=== PATIENT | female | born 1970 | race Caucasian/White ===

== ENCOUNTER → 2016-05-06 | Outpatient (CLI) | payer OTHER, BC ==
--- NOTE | 2016-05-07 02:01 | REP ---
Clinical: Abdominal pain. Technique: Supine views of the abdomen and pelvis. Findings: Bowel gas pattern is relatively nonspecific. No definite obstruction or perforation appreciated. Moderate fecal stasis cannot be excluded suggesting the possibility of associated constipation. No organomegaly. Phleboliths noted within the pelvis. Skeletal structures intact. Impression: Possible fecal stasis and constipation. No evidence for bowel obstruction. No definite perforation. Signed by Adelfo Hutchinson MD 05/07/2016 01:52 A
== END ==
LOC: M WUC 16:42
PROVIDERS: ATTEND Physician Assistant
DX: R10.816 Epigastric abdominal tenderness (principal)

== ENCOUNTER → 2016-05-21 | Outpatient (CLI) | payer OTHER, BC ==
[~2016-05-21] MED LIST: PRIL20CA9 PO
--- NOTE | 2016-05-21 09:27 | REP ---
GALLBLADDER ULTRASOUND: 05/21/2016. Clinical history: Abdominal and epigastric pain. No prior study. Findings: Sonographic evaluation of the abdomen shows liver with homogeneous echotexture in the right hepatic lobe. The left lobe is largely obscured by extensive gas shadowing from overlying stomach. In the right lobe is a 1.4 x 1.1 x 1 cm septated cyst. I see no solid mass, biliary dilatation nor adjacent ascites. Gallbladder is adequately filled. There is no definite stone, sludge, mass or wall thickening. The wall of 2 mm is normal with no pericholecystic fluid. There was no sonographic Holly sign. Common bile duct is 3.3 mm and normal. Pancreas was obscured by gas shadowing and cannot be evaluated. The right kidney is 10 x 5.2 x 4.3 cm and is without hydronephrosis or stone. Impression: 1. Septated cyst in the right lobe of the liver 1.4 x 1.1 cm but no hepatic solid mass, biliary dilatation or ascites. The left lobe is largely obscured by gas shadowing. 2. Gallbladder without stones, wall thickening or mass. There is no sonographic Holly sign. 3. Right kidney unremarkable. Pancreas obscured. Signed by Jose Martinez MD 05/21/2016 09:37 A
== END ==
LOC: M RAD 08:35
PROVIDERS: ATTEND Surgery
DX: R10.13 Epigastric pain (principal)

== ENCOUNTER → 2016-06-04 | Outpatient (CLI) | payer OTHER, BC ==
[~2016-06-04] VITALS: Ht 165.1 cm; Wt 71.7 kg
[~2016-06-04] MED LIST changes: +LIDOCAINE 2% INJ 100 MG/5 ML SDV (FOR ANES.) As Ordered ONE; +NS 1,000 ML IV SCH; +PROPOFOL 200 MG/20 ML VIAL As Ordered ONE; +fentaNYL 100 MCG/2 ML INJECTION (J3010) As Ordered ONE
--- NOTE | 2016-06-04 12:29 | ROOR ---
Patient Name: Sandra Jacobs Procedure Date: 06/04/2016 12:03 PM Date of : 1970 Age: 46 Room: [facility] Gender: Female Note Status: Finalized Procedure: Upper GI endoscopy Indications: Epigastric abdominal pain Providers: Mu Burgos MD Referring MD: [facility], Admin. Requesting Provider: Medicines: Monitored Anesthesia Care Complications: No immediate complications. Procedure: Pre-Anesthesia Assessment: - Prior to the procedure, a History and Physical was performed, and patient medications and allergies were reviewed. The patient is competent. The risks and benefits of the procedure and the sedation options and risks were discussed with the patient. All questions were answered and informed consent was obtained. Patient identification and proposed procedure were verified by the physician, the nurse and the anesthesiologist in the endoscopy suite. Mental Status Examination: alert and oriented. Airway Examination: normal oropharyngeal airway and neck mobility. Respiratory Examination: clear to auscultation. CV Examination: normal. Prophylactic Antibiotics: The patient does not require prophylactic antibiotics. Prior Anticoagulants: The patient has taken no previous anticoagulant or antiplatelet agents. ASA Grade Assessment: II - A patient with mild systemic disease. After reviewing the risks and benefits, the patient was deemed in satisfactory condition to undergo the procedure. The anesthesia plan was to use monitored anesthesia care (MAC). Immediately prior to administration of medications, the patient was re-assessed for adequacy to receive sedatives. The heart rate, respiratory rate, oxygen saturations, blood pressure, adequacy of pulmonary ventilation, and response to care were monitored throughout the procedure. The physical status of the patient was re-assessed after the procedure. The Endoscope was introduced through the mouth, and advanced to the second part of duodenum. The upper GI endoscopy was accomplished without difficulty. The patient tolerated the procedure well. Findings: The examined esophagus was normal. Bilious fluid was found in the gastric body. A small healed ulcer was found in the prepyloric region of the stomach. The scar tissue was healthy in appearance. This was biopsied with a cold forceps for histology. Estimated blood loss was minimal. Localized nodular mucosa was found in the prepyloric region of the stomach. Biopsies were taken with a cold forceps for histology. Estimated blood loss was minimal. Impression: - Normal esophagus. - Bilious gastric fluid. - Scar in the prepyloric region of the stomach. Biopsied. - Nodular mucosa in the prepyloric region of the stomach. Biopsied. Recommendation: - Discharge patient to home (ambulatory). Mu Burgos MD Mu Burgos MD 06/04/2016 12:22:18 PM This report has been signed electronically. Number of Addenda: 0 Note Initiated On: 06/04/2016 12:03 PM Estimated Blood Loss: Estimated blood loss was minimal.
[2016-06-04 12:40] VITALS: BP 108/65
== END | disposition home or self-care (01) ==
LOC: M OPP 11:06
PROVIDERS: ATTEND Surgery
DX: R10.13 Epigastric pain (principal); K31.89 Other diseases of stomach and duodenum; R12 Heartburn; Z79.899 Other long term (current) drug therapy; Z80.49 Family history of malignant neoplasm of other genital organs
CPT/HCPCS: 43239; 88305; 99156; J3010

== ENCOUNTER → 2016-07-16 | Outpatient (REF) | payer OTHER, BC ==
[~2016-07-16] MED LIST changes: -LIDOCAINE 2% INJ 100 MG/5 ML SDV (FOR ANES.) As Ordered ONE; -NS 1,000 ML IV SCH; -PROPOFOL 200 MG/20 ML VIAL As Ordered ONE; -fentaNYL 100 MCG/2 ML INJECTION (J3010) As Ordered ONE
[2016-07-16 18:18] LABS: BASO % 0.5 % (0.0-1.0); EOS # 0.2 K/mm3 (0.0-0.50); EOS % 3.1 % (0.0-3.0); LARGE UNSTAINED CELL # 0.1 K/mm3 (0.0-0.4); LARGE UNSTAINED CELL % 1.7 % (0.0-4.0); LYMPH # 1.9 K/mm3 (1.5-4.5); LYMPH % 35.7 % (24.0-44.0); MEAN CORPUSCULAR HEMOGLOBIN 29.3 pg (27.0-33.0); MEAN CORPUSCULAR HGB CONC 32.7 g/dl (32.0-36.5); MEAN CORPUSCULAR VOLUME 89.5 fl (80.0-96.0); MONO # 0.4 K/mm3 (0.0-0.8); MONO % 7.7 % (0.0-5.0); NEUTROPHILS # 2.5 K/mm3 (1.8-7.7); NEUTROPHILS % 51.3 % (36.0-66.0); PLATELET COUNT, AUTOMATED 234 k/mm3 (150-450); RED CELL DISTRIBUTION WIDTH 12.8 % (11.5-14.5)
[2016-07-16 19:10] LABS: ALBUMIN 3.6 GM/DL (3.2-5.2); ALBUMIN/GLOBULIN RATIO 1.16 (1.00-1.93); ALKALINE PHOSPHATASE 65 U/L (45-117); ALT/SGPT 23 U/L (12-78); ANION GAP 7 MEQ/L (8-16); AST/SGOT 17 U/L (15-37); BILIRUBIN,TOTAL 0.3 MG/DL (0.2-1.0); BLOOD UREA NITROGEN 16 MG/DL (7-18); CALCIUM LEVEL 8.5 MG/DL (8.5-10.1); CARBON DIOXIDE LEVEL 25 MEQ/L (21-32); CHLORIDE LEVEL 110 MEQ/L (98-107); CHOLESTEROL LEVEL 159 MG/DL (<200); CREATININE FOR GFR 0.76 MG/DL (0.55-1.02); FREE T4 0.95 NG/DL (0.76-1.46); GLOMERULAR FILTRATION RATE > 60.0 (>58); GLUCOSE, FASTING 85 MG/DL (70-105); POTASSIUM SERUM 4.6 MEQ/L (3.5-5.1); SODIUM LEVEL 142 MEQ/L (136-145); TOTAL PROTEIN 6.7 GM/DL (6.4-8.2); TRIGLYCERIDES LEVEL 44 MG/DL (<150)
== END ==
LOC: M SFHCCAPE 07:16
PROVIDERS: ATTEND Nurse Practitioner
DX: F41.1 Generalized anxiety disorder (principal)

== ENCOUNTER → 2016-07-23 | Outpatient (CLI) | payer OTHER, BC ==
--- NOTE | 2016-07-24 05:18 | REP ---
Clinical: Pelvic pain and dyspareunia . Technique: Transabdominal pelvic ultrasound followed by transvaginal examination for better evaluation of the endometrium and adnexa with color Doppler evaluation of the ovaries. Findings: Bladder is unremarkable and measures 9.2 x 7.1 x 5.4 cm . Heterogeneous anteverted uterus measures 9.4 x 4.1 x 6.2 cm . The endometrial complex measures 7.8 mm thickness. No discrete uterine or endometrial abnormalities are appreciated. Few Nabothian cysts are identified in the cervical region. Bilateral ovaries are normal in appearance and vascularity without evidence for torsion. Right ovary measures 3.1 x 1.4 x 3.0 cm with 1.1 cm dominant follicle ; R I = 0.50 . Left ovary measures 3.5 x 1.6 x 1.9 cm with 1.8 cm resolving physiologic cyst ; R I = 0.50 . Trace pelvic free fluid. No adnexal mass lesion. . Impression: 1. Relatively normal pelvic ultrasound Signed by Adelfo Hutchinson MD 07/24/2016 05:09 A
== END ==
LOC: M RAD 10:11
PROVIDERS: ATTEND Physician Assistant
DX: N94.10 Unspecified dyspareunia (principal); R10.2 Pelvic and perineal pain

== ENCOUNTER 2016-11-28 15:53 | Emergency (ER) | payer OTHER, BC ==
[~2016-11-28] VITALS: Ht 165.1 cm; Wt 76.4 kg
[2016-11-28 15:54] VITALS: BP 146/69
[2016-11-28] MEDS ORDERED: NAPR500T3 PO (16:12)
[2016-11-28] MEDS ORDERED: IBUP-1022 PO (17:46)
== END 2016-11-28 17:54 | disposition home or self-care (01) ==
LOC: M ED 15:53
DX: S56.911A Strain of unspecified muscles, fascia and tendons at forearm level, right arm, initial encounter (principal); S63.501A Unspecified sprain of right wrist, initial encounter; X58.XXXA Exposure to other specified factors, initial encounter; Y92.89 Other specified places as the place of occurrence of the external cause; Y93.9 Activity, unspecified; Y99.9 Unspecified external cause status

== ENCOUNTER 2017-02-22 12:34 | Emergency (ER) | payer OTHER, BC ==
[~2017-02-22] VITALS: Ht 165.1 cm; Wt 77.3 kg
[~2017-02-22 12:34] MED LIST changes: +IBUP-1022 PO; +NAPR500T3 PO
[2017-02-22] MEDS ORDERED: IBUP200C10 PO (12:45)
[2017-02-22] MEDS ORDERED: MULT1TAB8 PO (12:45)
[2017-02-22] MEDS ORDERED: CALC-190 PO (12:45)
[2017-02-22] MEDS ORDERED: FISH500C PO (12:45)
[2017-02-22] MEDS ORDERED: IBUPROFEN 600 MG TAB PO ONE (13:30)
[2017-02-22] MEDS ORDERED: IBUP-1022 PO (14:10)
[2017-02-22 14:22] VITALS: BP 139/76
--- NOTE | 2017-02-22 14:35 | REP ---
LEFT KNEE SERIES, FIVE VIEWS: There is no evidence of an acute fracture, dislocation or intrinsic bone disease. There is minor spurring of the superior pole of the patella. IMPRESSION: No fracture or dislocation. Signed by Earnest De La Cruz MD 02/22/2017 05:39 P
== END 2017-02-22 14:23 | disposition home or self-care (01) ==
LOC: M ED 12:34
DX: M25.562 Pain in left knee (principal); Z79.899 Other long term (current) drug therapy

== ENCOUNTER 2017-06-05 20:31 | Emergency (ER) | payer OTHER, BC ==
[2017-06-05 21:34] LABS: BASO % 0.2 % (0.0-1.0); EOS % 0.3 % (0.0-3.0); HEMATOCRIT 37.5 % (36.0-47.0); HEMOGLOBIN 12.6 g/dl (12.0-16.0); IMMATURE GRANULOCYTE % 0.5 % (0-3.0); LYMPH # 1.4 10^3/uL (1.5-4.5); LYMPH % 14.4 % (24.0-44.0); MEAN CORPUSCULAR HEMOGLOBIN 29.1 pg (27.0-33.0); MEAN CORPUSCULAR HGB CONC 33.6 g/dl (32.0-36.5); MEAN CORPUSCULAR VOLUME 86.6 fl (80.0-96.0); MONO # 0.6 10^3/uL (0.0-0.8); MONO % 6.7 % (0.0-5.0); NEUTROPHILS # 7.4 10^3/uL (1.8-7.7); NEUTROPHILS % 77.9 % (36.0-66.0); PLATELET COUNT, AUTOMATED 276 10^3/uL (150-450); RED BLOOD COUNT 4.33 10^6/uL (4.00-5.40); RED CELL DISTRIBUTION WIDTH 12.8 % (11.5-14.5); WHITE BLOOD COUNT 9.5 10^3/uL (4.0-10.0)
[2017-06-05] MEDS: KETOROLAC 30 MG/ML VIAL (J1885) IV (21:34)
[2017-06-05] MEDS: NS 1,000 ML IV (21:34)
[2017-06-05] MEDS: ONDANSETRON 4MG/2ML VIAL (J2405) IV (21:34)
[2017-06-05 22:06] LABS: ALBUMIN/GLOBULIN RATIO 1.25 (1.00-1.93); ALKALINE PHOSPHATASE 65 U/L (45-117); ALT/SGPT 19 U/L (12-78); AMYLASE 70 U/L (25-115); ANION GAP 5 MEQ/L (8-16); AST/SGOT 18 U/L (7-37); BILIRUBIN,DIRECT 0.1 MG/DL (0.0-0.2); BILIRUBIN,TOTAL 0.5 MG/DL (0.2-1.0); BLOOD UREA NITROGEN 15 MG/DL (7-18); C REACTIVE PROTEIN QUANTITATIV 0.53 MG/DL (0.00-0.30); CALCIUM LEVEL 8.7 MG/DL (8.5-10.1); CARBON DIOXIDE LEVEL 28 MEQ/L (21-32); CHLORIDE LEVEL 106 MEQ/L (98-107); CK-MB VALUE MASS 2.3 NG/ML (0.0-3.6); CPK CREATINE PHOSPHOKINASE 112 U/L (26-192); CREATININE FOR GFR 0.78 MG/DL (0.55-1.30); GLOMERULAR FILTRATION RATE > 60.0 (>58); GLUCOSE, FASTING 100 MG/DL (70-100); LIPASE 127 U/L (73-393); MB/CK RELATIVE INDEX 2.05 (< OR =4); POTASSIUM SERUM 3.7 MEQ/L (3.5-5.1); SODIUM LEVEL 139 MEQ/L (136-145); TOTAL PROTEIN 7.2 GM/DL (6.4-8.2); TROPONIN I < 0.02 NG/ML (< 0.10)
== END 2017-06-05 22:44 | disposition home or self-care (01) ==
LOC: M ED 20:31
DX: K80.50 Calculus of bile duct without cholangitis or cholecystitis without obstruction (principal); K21.9 Gastro-esophageal reflux disease without esophagitis; Z79.899 Other long term (current) drug therapy
CPT/HCPCS: J2405

== ENCOUNTER → 2017-06-15 | Outpatient (CLI) | payer OTHER, BC | LOC: M RAD 08:07 | DX: R10.11 Right upper quadrant pain (principal) | CPT/HCPCS: J2805 ==

== ENCOUNTER → 2017-06-25 | Outpatient (REF) | payer OTHER, BC ==
[2017-06-27 14:10] LABS: H PYLORI STOOL ANTIGEN Negative (Negative)
== END ==
LOC: M SFHCCAPE 10:57
DX: R10.11 Right upper quadrant pain (principal); K21.9 Gastro-esophageal reflux disease without esophagitis
CPT/HCPCS: 87338

== ENCOUNTER → 2017-09-29 | Outpatient (CLI) | payer OTHER, BC ==
[2017-09-29 19:06] LABS: FERRITIN 18 NG/ML (8-252); IRON (FE) 48 UG/DL (50-170); PERCENT SATURATION 15.1 % (13.2-45.0); TOTAL IRON BINDING CAPACITY 318 UG/DL (250-450)
[2017-09-29 19:09] LABS: ALPHA FETOPROTEIN TUMOR QUANT < 1.3 NG/ML (<8.1)
[2017-09-30 10:41] LABS: HEPATITIS B SURFACE ANTIGEN NEGATIVE (NEGATIVE)
[2017-09-30 10:43] LABS: HEPATITIS B SURFACE ANTIBODY NEGATIVE (POSITIVE)
[2017-09-30 11:04] LABS: HEPATITIS C VIRUS ABY INDEX 0.1 INDEX (<0.8)
[2017-09-30 11:35] LABS: CONTROL LINE HPYORI INT CTR LINE PRESENT; H PYLORI QUALITATIVE IgG NEGATIVE (NEGATIVE)
== END ==
LOC: M LAB 17:09
DX: R10.13 Epigastric pain (principal)
CPT/HCPCS: 83550

== ENCOUNTER 2017-10-26 07:11 | Inpatient (IN) | payer OTHER, BC ==
[2017-10-26] MEDS: GI COCKTAIL 50ML BTL(HYOSCYAMINE/MAALOX/LIDOCAINE VISCOUS)(1:3:1) PO (08:26)
[2017-10-26] MEDS: KETOROLAC 30 MG/ML VIAL (J1885) IV (08:26)
[2017-10-26] MEDS: NS 1,000 ML IV (08:26)
[2017-10-26] MEDS: METOCLOPRAMIDE INJ 10MG/2ML VIAL (J2765) IV (08:26)
[2017-10-26] MEDS: GASTROGRAFIN SOLUTION 30ML PO ×2 (08:26→08:55)
[2017-10-26 08:35] LABS: BASO % 0.2 % (0.0-1.0); EOS % 0.2 % (0.0-3.0); HEMATOCRIT 42.2 % (36.0-47.0); HEMOGLOBIN 14.4 g/dl (12.0-15.5); IMMATURE GRANULOCYTE % 0.4 % (0-3.0); LYMPH # 1.3 10^3/uL (1.5-4.5); LYMPH % 12.4 % (24.0-44.0); MEAN CORPUSCULAR HEMOGLOBIN 29.1 pg (27.0-33.0); MEAN CORPUSCULAR HGB CONC 34.1 g/dl (32.0-36.5); MEAN CORPUSCULAR VOLUME 85.3 fl (80.0-96.0); MONO # 0.6 10^3/uL (0.0-0.8); MONO % 5.4 % (0.0-5.0); NEUTROPHILS # 8.6 10^3/uL (1.8-7.7); NEUTROPHILS % 81.4 % (36.0-66.0); PLATELET COUNT, AUTOMATED 302 10^3/uL (150-450); RED BLOOD COUNT 4.95 10^6/uL (4.00-5.40); WHITE BLOOD COUNT 10.5 10^3/uL (4.0-10.0)
[2017-10-26 09:23] LABS: ALBUMIN 3.8 GM/DL (3.2-5.2); ALBUMIN/GLOBULIN RATIO 0.97 (1.00-1.93); ALKALINE PHOSPHATASE 76 U/L (45-117); ALT/SGPT 22 U/L (12-78); ANION GAP 6 MEQ/L (8-16); AST/SGOT 14 U/L (7-37); BILIRUBIN,TOTAL 0.4 MG/DL (0.2-1.0); BLOOD UREA NITROGEN 13 MG/DL (7-18); CALCIUM LEVEL 8.8 MG/DL (8.5-10.1); CARBON DIOXIDE LEVEL 28 MEQ/L (21-32); CHLORIDE LEVEL 106 MEQ/L (98-107); CK-MB VALUE MASS 1.3 NG/ML (<3.6); CPK CREATINE PHOSPHOKINASE 80 U/L (26-192); CREATININE FOR GFR 0.84 MG/DL (0.55-1.30); GAMMA GLUTAMYLTRANSPEPTIDASE 13 U/L (5-55); GLOMERULAR FILTRATION RATE > 60.0 (>58); GLUCOSE, FASTING 103 MG/DL (70-100); LIPASE 97 U/L (73-393); MB/CK RELATIVE INDEX 1.62 (< OR =4); POTASSIUM SERUM 3.8 MEQ/L (3.5-5.1); SODIUM LEVEL 140 MEQ/L (136-145); TOTAL PROTEIN 7.7 GM/DL (6.4-8.2); TROPONIN I < 0.02 NG/ML (< 0.10)
[2017-10-26 09:24] LABS: AMYLASE 64 U/L (25-115)
[2017-10-26 09:41] LABS: AMORPHOUS SEDIMENT SMALL (NEGATIVE); APPEARANCE, URINE HAZY (CLEAR); BACTERIA, URINE AUTO NEGATIVE (NEGATIVE); BILIRUBIN, URINE AUTO NEGATIVE (NEGATIVE); BLOOD, URINE BLOOD NEGATIVE (NEGATIVE); COLOR, URINE YELLOW (YELLOW); GLUCOSE, URINE (UA) AUTO NEGATIVE (NEGATIVE); KETONE, URINE AUTO TRACE mg/dL (NEGATIVE); LEUKOCYTE ESTERASE, URINE AUTO 3+ (NEGATIVE); MUCUS, URINE SMALL (NEGATIVE); NITRITE, URINE AUTO NEGATIVE (NEGATIVE); PROTEIN, URINE AUTO NEGATIVE (NEGATIVE); RBC, URINE AUTO 7 /HPF (0-3); SPECIFIC GRAVITY URINE AUTO 1.025 (1.002-1.035); SQUAMOUS EPITHELIAL CELL UR AU 4 /HPF (0-6); UROBILINOGEN, URINE AUTO 0.2 mg/dL (0.0-2.0); WBC, URINE AUTO 7 /HPF (0-3)
[2017-10-26] MEDS ORDERED: ISOVUE-370 76% 100ML VIAL (Q9967) As Ordered (09:45)
[2017-10-26] MEDS: MORPHINE 4 MG/ML 1ML VIAL/SYRINGE (J2270) IV ×2 (10:14→12:47)
[2017-10-26] MEDS: ONDANSETRON 4MG/2ML VIAL (J2405) IV ×3 (10:14→14:48)
[2017-10-26] MEDS: PANTOPRAZOLE 40MG INJ (PROTONIX) (C9113) IV (14:39)
[2017-10-26] MEDS: LR 1,000 ML IV ×2 (14:39→21:56)
[2017-10-27] MEDS: LR 1,000 ML IV ×4 (05:56→21:56)
[2017-10-27 07:49] LABS: ANION GAP 6 MEQ/L (8-16); BLOOD UREA NITROGEN 7 MG/DL (7-18); CALCIUM LEVEL 7.9 MG/DL (8.5-10.1); CARBON DIOXIDE LEVEL 26 MEQ/L (21-32); CHLORIDE LEVEL 111 MEQ/L (98-107); CREATININE FOR GFR 0.87 MG/DL (0.55-1.30); GLOMERULAR FILTRATION RATE > 60.0 (>58); GLUCOSE, FASTING 81 MG/DL (70-100); SODIUM LEVEL 143 MEQ/L (136-145)
[2017-10-27] MEDS ORDERED: ROCURONIUM BROMIDE 50 MG/5 ML VIAL As Ordered ×2 (14:27→16:17)
[2017-10-27] MEDS ORDERED: fentaNYL 250 MCG/5 ML INJECTION (J3010) As Ordered (14:27)
[2017-10-27] MEDS ORDERED: dexameTHASONE 4 MG/ML 1ML VIAL (J1100) As Ordered ×2 (14:27→16:05)
[2017-10-27] MEDS ORDERED: MIDAZOLAM INJ 2 MG/2 ML VIAL (J2250) As Ordered (14:27)
[2017-10-27] MEDS ORDERED: SUGAMMADEX SODIUM 500 MG/5 ML VIAL (BRIDION) As Ordered (14:27)
[2017-10-27] MEDS ORDERED: LIDOCAINE 2% INJ 100 MG/5 ML SDV (FOR ANES.) As Ordered (14:27)
[2017-10-27] MEDS ORDERED: ONDANSETRON 4MG/2ML VIAL (J2405) As Ordered ×2 (14:27→19:16)
[2017-10-27] MEDS ORDERED: PROPOFOL 200 MG/20 ML VIAL As Ordered ×2 (14:27→18:18)
[2017-10-27] MEDS ORDERED: SUCCINYLCHOLINE 100 MG/5 ML SYRINGE (J0330) As Ordered (15:48)
[2017-10-27] MEDS: BUPIVACAINE/EPIN 0.25% 30 ML VIAL As Ordered (16:26)
[2017-10-27] MEDS ORDERED: ePHEDrine SULFATE 25 MG/5 ML(5MG/ML) SYRINGE As Ordered (16:29)
[2017-10-27] MEDS: BUPIVACAINE HCL 0.25% 10 ML VIAL As Ordered (18:10)
[2017-10-27] MEDS: BUPIVACAINE LIPOSOME/PF 1.3% 20 ML VIAL (13.3MG/ML)(EXPAREL) As Ordered (18:10)
[2017-10-27] MEDS ORDERED: KETOROLAC 60 MG/2 ML VIAL (J1885) As Ordered (18:14)
[2017-10-27] MEDS ORDERED: GLYCOPYRROLATE INJ 0.2 MG/ML 2 ML VIAL As Ordered (18:15)
[2017-10-27] MEDS ORDERED: NEOSTIGMINE 10 MG/10 ML VIAL (J2710) As Ordered (18:15)
[2017-10-27] MEDS ORDERED: ONDANSETRON 4MG/2ML VIAL (J2405) IV (19:00)
[2017-10-27] MEDS: fentaNYL 100 MCG/2 ML INJECTION (J3010) IV ×4 (19:05→19:29)
[2017-10-27] MEDS: NORCO, ANEXSIA 5/325MG TABLET (HYDROcodone/ACETAMINOPHEN) PO ×2 (19:05→19:40)
[2017-10-27] MEDS ORDERED: MORPHINE 10 MG/ML 1ML VIAL (J2270) As Ordered (19:36)
[2017-10-27] MEDS ORDERED: NORCO, ANEXSIA 5/325MG TABLET (HYDROcodone/ACETAMINOPHEN) As Ordered (19:37)
[2017-10-27] MEDS: MORPHINE 10 MG/ML 1ML VIAL (J2270) IV ×2 (19:40→19:47)
[2017-10-27] MEDS: PANTOPRAZOLE 40MG INJ (PROTONIX) (C9113) IV (21:29)
[2017-10-27] MEDS: KETOROLAC 30 MG/ML VIAL (J1885) IV (23:29)
[2017-10-28] MEDS: NORCO, ANEXSIA 5/325MG TABLET (HYDROcodone/ACETAMINOPHEN) PO ×2 (01:03→12:55)
[2017-10-28] MEDS: LR 1,000 ML IV ×2 (04:14→12:17)
[2017-10-28] MEDS: MORPHINE 4 MG/ML 1ML VIAL/SYRINGE (J2270) IV ×2 (04:29→06:42)
[2017-10-28 07:17] LABS: BASO % 0.1 % (0.0-1.0); HEMATOCRIT 36.1 % (36.0-47.0); IMMATURE GRANULOCYTE % 0.8 % (0-3.0); LYMPH # 1.1 10^3/uL (1.5-4.5); LYMPH % 10.8 % (24.0-44.0); MEAN CORPUSCULAR HEMOGLOBIN 29.2 pg (27.0-33.0); MEAN CORPUSCULAR HGB CONC 33.2 g/dl (32.0-36.5); MEAN CORPUSCULAR VOLUME 87.8 fl (80.0-96.0); MONO # 0.8 10^3/uL (0.0-0.8); MONO % 7.6 % (0.0-5.0); NEUTROPHILS # 8.6 10^3/uL (1.8-7.7); NEUTROPHILS % 80.7 % (36.0-66.0); PLATELET COUNT, AUTOMATED 227 10^3/uL (150-450); RED BLOOD COUNT 4.11 10^6/uL (4.00-5.40); RED CELL DISTRIBUTION WIDTH 12.9 % (11.5-14.5); WHITE BLOOD COUNT 10.6 10^3/uL (4.0-10.0)
[2017-10-28 07:45] LABS: ALBUMIN 2.9 GM/DL (3.2-5.2); ALBUMIN/GLOBULIN RATIO 0.88 (1.00-1.93); ALKALINE PHOSPHATASE 64 U/L (45-117); ALT/SGPT 21 U/L (12-78); ANION GAP 8 MEQ/L (8-16); AST/SGOT 20 U/L (7-37); BILIRUBIN,TOTAL 0.4 MG/DL (0.2-1.0); BLOOD UREA NITROGEN 10 MG/DL (7-18); CARBON DIOXIDE LEVEL 24 MEQ/L (21-32); CHLORIDE LEVEL 108 MEQ/L (98-107); CREATININE FOR GFR 0.67 MG/DL (0.55-1.30); GLOMERULAR FILTRATION RATE > 60.0 (>58); GLUCOSE, FASTING 98 MG/DL (70-100); SODIUM LEVEL 140 MEQ/L (136-145); TOTAL PROTEIN 6.2 GM/DL (6.4-8.2)
[2017-10-28] MEDS: KETOROLAC 30 MG/ML VIAL (J1885) IV (08:35)
[2017-10-28] MEDS: ONDANSETRON 4MG/2ML VIAL (J2405) IV (12:17)
[2017-10-28] MEDS: PANTOPRAZOLE 40MG INJ (PROTONIX) (C9113) IV (15:11)
[2017-10-29] MEDS: IBUPROFEN 600 MG TAB PO (00:20)
== END 2017-10-29 11:45 | disposition home or self-care (01) | DRG 220 ==
LOC: M ED 07:11 → M ED INP 13:56 → M PED 16:55
PROC: 0BUT4JZ Supplement Diaphragm with Synthetic Substitute, Percutaneous Endoscopic Approach (ICD-10-PCS; principal; 2017-10-27 14:15)
DX: K44.1 Diaphragmatic hernia with gangrene (principal); Z79.899 Other long term (current) drug therapy

== ENCOUNTER 2018-06-09 17:09 | Emergency (ER) | payer OTHER, BC ==
[~2018-06-09] VITALS: Ht 165.1 cm; Wt 78.6 kg
[~2018-06-09 17:09] MED LIST changes: +CALC-190 PO; +FISH500C PO; +IBUP200C25 PO; +KETO10TAB PO; +MULT1TAB8 PO; +NAPR-885 PO; -NAPR500T3 PO; +ZOFR4TAB14 PO
[2018-06-09] MEDS ORDERED: KETOROLAC TROMETHAMINE 10 MG TAB PO ONE (17:30)
--- NOTE | 2018-06-09 18:12 | REP ---
SCAPHOID VIEW RIGHT WRIST: A single scaphoid view of the right wrist was performed. The scaphoid is intact with no fracture or dislocation. IMPRESSION: No evidence of scaphoid fracture. Electronically Signed by Earnest De La Cruz MD 06/09/2018 11:55 P
--- NOTE | 2018-06-09 18:13 | REP ---
RIGHT HAND SERIES: Four views of the right hand are performed.. No fracture or dislocation is seen. Joint spaces are unremarkable. Tiny spurs are seen of some of the distal phalanges. There is a tiny calcific density adjacent to the base of the 2nd distal phalanx which may represent a ligamentous calcification or old avulsion fracture. IMPRESSION: No acute fracture or dislocation. Electronically Signed by Earnest De La Cruz MD 06/09/2018 11:57 P
[2018-06-09 18:17] VITALS: BP 146/70
== END 2018-06-09 18:21 | disposition home or self-care (01) ==
LOC: M ED 17:09
DX: S63.8X1A Sprain of other part of right wrist and hand, initial encounter (principal); W23.0XXA Caught, crushed, jammed, or pinched between moving objects, initial encounter; Y92.89 Other specified places as the place of occurrence of the external cause

== ENCOUNTER → 2018-07-29 | Outpatient (REF) | payer OTHER, BC | LOC: M LAB REF 17:58 | PROVIDERS: ATTEND Physician Assistant | DX: J02.9 Acute pharyngitis, unspecified (principal) ==

== ENCOUNTER → 2018-10-26 | Outpatient (REF) | payer OTHER, BC ==
[2018-10-30 14:09] LABS: HPV HYBRID CAPTURE II Negative (Negative)
== END ==
LOC: M SFHCWAGY 12:01
PROVIDERS: ATTEND Nurse Practitioner Women's Health
DX: Z12.4 Encounter for screening for malignant neoplasm of cervix (principal)

== ENCOUNTER → 2019-03-09 | Outpatient (CLI) | payer OTHER, BC ==
--- NOTE | 2019-03-09 12:29 | REP ---
Five views lumbar spine: 03/09/2019. Indication: Low back pain. Comparison: 10/26/2017. Findings: There is no acute fracture, subluxation or dislocation. 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 No erosive lesions of the visualized bones are present. Disc space narrowing is present throughout most pronounced at L4/L5. The neural foramen appear patent. Impression: No acute osseous injury of the lumbar spine. Electronically Signed by Stepan Mehta DO 03/09/2019 12:21 P
== END ==
LOC: M WUC 11:55
PROVIDERS: ATTEND Physician Assistant
DX: M54.5 Low back pain (principal); M62.830 Muscle spasm of back

== ENCOUNTER 2020-12-18 08:24 | Emergency (ER) | payer OTHER, BC ==
[~2020-12-18] VITALS: Ht 165.1 cm; Wt 78.8 kg
[2020-12-18 08:24] VITALS: BP 138/72
--- NOTE | 2020-12-18 11:22 | REP ---
INDICATION: hyperextended COMPARISON: None. TECHNIQUE: AP, lateral, bilateral oblique and sunrise views. FINDINGS: Osseous structures, joint spaces, and surrounding soft tissues are essentially age-appropriate. Lateral view demonstrates small osteophyte forming at the quadriceps tendon along the superior aspect of the patella. A possible suprapatellar effusion cannot be excluded. There is no evidence for acute fracture or dislocation otherwise noted. IMPRESSION: Essentially age-related changes. Findings as described above. No obvious significant fracture or dislocation identified. <Electronically signed by Adelfo Hutchinson > 12/18/20 [id number]
[2020-12-18] MEDS ORDERED: NAPR-837 PO (12:24)
== END 2020-12-18 12:51 | disposition home or self-care (01) ==
LOC: M ED 08:24
DX: M25.462 Effusion, left knee (principal); S89.92XA Unspecified injury of left lower leg, initial encounter; X50.0XXA Overexertion from strenuous movement or load, initial encounter; Y92.9 Unspecified place or not applicable; Y93.9 Activity, unspecified; Y99.0 Civilian activity done for income or pay; K21.9 Gastro-esophageal reflux disease without esophagitis

== ENCOUNTER → 2021-06-26 | Outpatient (CLI) | payer OTHER, BC ==
[~2021-06-26] MED LIST changes: +NAPR-837 PO
[2021-06-26 11:30] LABS: BASO % 0.3 % (0.0-1.0); EOS # 0.1 10^3/uL (0.0-0.5); EOS % 1.1 % (0.0-3.0); HEMATOCRIT 42.3 % (36.0-47.0); HEMOGLOBIN 13.5 g/dl (12.0-15.5); LYMPH # 2.6 10^3/uL (1.5-5.0); LYMPH % 22.8 % (24.0-44.0); MEAN CORPUSCULAR HGB CONC 31.9 g/dl (32.0-36.5); MEAN CORPUSCULAR VOLUME 87.6 fl (80.0-96.0); MONO % 8.3 % (2.0-8.0); NEUTROPHILS # 7.7 10^3/uL (1.5-8.5); NEUTROPHILS % 67.1 % (36.0-66.0); PLATELET COUNT, AUTOMATED 331 10^3/uL (150-450); RED BLOOD COUNT 4.83 10^6/uL (4.00-5.40); WHITE BLOOD COUNT 11.4 10^3/uL (4.0-10.0)
[2021-06-26 12:24] LABS: ALT/SGPT 23 U/L (12-78); BILIRUBIN,TOTAL 0.3 MG/DL (0.2-1.0); BLOOD UREA NITROGEN 12 MG/DL (7-18); CALCIUM LEVEL 9.1 MG/DL (8.5-10.1); CARBON DIOXIDE LEVEL 30 MEQ/L (21-32); CHLORIDE LEVEL 111 MEQ/L (98-107); CREATININE FOR GFR 0.75 MG/DL (0.55-1.30); GLOMERULAR FILTRATION RATE > 60.0 (>51); GLUCOSE, FASTING 89 MG/DL (70-100); POTASSIUM SERUM 3.9 MEQ/L (3.5-5.1); SODIUM LEVEL 143 MEQ/L (136-145); TRIGLYCERIDES LEVEL 59 MG/DL (<150)
[2021-06-26 12:25] LABS: ALBUMIN 3.8 GM/DL (3.2-5.2); CHOLESTEROL LEVEL 205 MG/DL (<200); CHOLESTEROL RISK RATIO 3.416 (<5); HDL CHOLESTEROL 60 MG/DL (>40); IRON (FE) 58 UG/DL (50-170); LDL CHOLESTEROL 133 MG/DL (<100); NON-HDL-C 145 MG/DL; TOTAL 25(OH) VITAMIN D 33.8 NG/ML (30.0-100.0); TOTAL PROTEIN 6.9 GM/DL (6.4-8.2); VITAMIN B12 LEVEL 672 PG/ML (247-911)
== END ==
LOC: M WUC 08:16
PROVIDERS: ATTEND Physician Assistant
DX: R42 Dizziness and giddiness (principal)

== ENCOUNTER → 2021-10-30 | Outpatient (REF) | payer OTHER, BC | LOC: M SFHCWAGY 13:01 | PROVIDERS: ATTEND Obstetrics & Gynecology | DX: N93.0 Postcoital and contact bleeding (principal); Z12.4 Encounter for screening for malignant neoplasm of cervix; Z01.419 Encounter for gynecological examination (general) (routine) without abnormal findings; Z77.9 Other contact with and (suspected) exposures hazardous to health | CPT/HCPCS: 87624; G0123 ==

== ENCOUNTER → 2021-11-08 | Outpatient (CLI) | payer OTHER, BC | LOC: M WHC 10:31 | PROVIDERS: ATTEND Obstetrics & Gynecology | DX: N93.0 Postcoital and contact bleeding (principal) ==

== ENCOUNTER 2022-03-26 16:30 | Emergency (ER) | payer OTHER, BC ==
[~2022-03-26] VITALS: Ht 165.1 cm; Wt 80.2 kg
[2022-03-26 22:24] VITALS: BP 155/77
== END 2022-03-26 22:26 | disposition home or self-care (01) ==
LOC: M ED 16:30
DX: S00.03XA Contusion of scalp, initial encounter (principal); W20.8XXA Other cause of strike by thrown, projected or falling object, initial encounter; K21.9 Gastro-esophageal reflux disease without esophagitis; J45.909 Unspecified asthma, uncomplicated; M54.50 Low back pain, unspecified; Y92.9 Unspecified place or not applicable; Y93.89 Activity, other specified; Y99.0 Civilian activity done for income or pay

== ENCOUNTER → 2023-04-04 | Outpatient (REF) | payer OTHER, BC | LOC: M LAB REF 17:46 | PROVIDERS: ATTEND Physician Assistant Medical | DX: R05.9 Cough, unspecified (principal) ==

== ENCOUNTER 2023-05-27 07:42 | Day surgery (SDC) | payer OTHER, BC ==
[~2023-05-27] VITALS: Ht 165.1 cm; Wt 76.7 kg
[2023-05-27] MEDS: NS 1,000 ML IV ONE (08:12)
[2023-05-27] MEDS ORDERED: propofoL 200 MG/20 ML VIAL As Ordered ONE (09:37)
[2023-05-27] MEDS ORDERED: LIDOCAINE 2% 100MG/5ML SDV (FOR ANES.) As Ordered ONE (09:37)
[2023-05-27 09:48] VITALS: TEMP 98.6
[2023-05-27 10:32] VITALS: BP 145/71; O2SAT 99
== END 2023-05-27 10:40 | disposition home or self-care (01) ==
LOC: M OPP 07:42
PROVIDERS: ATTEND Internal Medicine Gastroenterology
DX: Z12.11 Encounter for screening for malignant neoplasm of colon (principal); K64.0 First degree hemorrhoids

== ENCOUNTER 2024-12-26 09:48 | Emergency (ER) | payer BC, OTHER ==
[~2024-12-26] VITALS: Ht 165.1 cm; Wt 79.1 kg
[~2024-12-26 09:48] MED LIST changes: -IBUP-1022 PO; +IBUP600T42 PO
[2024-12-26 12:00] LABS: BASO # 0.0 10^3/uL (0.0-0.2); BASO % 0.5 % (0.0-1.0); EOS # 0.1 10^3/uL (0.0-0.5); EOS % 0.8 % (0.0-3.0); LYMPH # 1.7 10^3/uL (1.5-5.0); LYMPH % 21.4 % (24.0-44.0); MONO # 0.7 10^3/uL (0.0-0.8); MONO % 8.6 % (2.0-8.0); NEUTROPHILS # 5.5 10^3/uL (1.5-8.5); NEUTROPHILS % 68.4 % (36.0-66.0); PLATELET COUNT, AUTOMATED 293 10^3/uL (150-450)
[2024-12-26 12:10] LABS: KETONE, URINE AUTO RFX NEGATIVE (NEGATIVE); MUCUS, URINE RFX SMALL (NEGATIVE); NITRITE, URINE AUTO RFX NEGATIVE (NEGATIVE); RBC, URINE AUTO RFX 0 /HPF (0-3); SQUAM EPITHELIAL CELL UR AURFX 2 /HPF (0-6); WBC, URINE AUTO RFX 0 /HPF (0-3)
[2024-12-26 12:14] LABS: INR 0.87
[2024-12-26 12:22] LABS: LEUKOCYTE ESTERASE UR AUTO RFX TRACE (NEGATIVE)
[2024-12-26 12:32] LABS: ALT/SGPT 19 U/L (7.0-40); AST/SGOT 23 U/L (<34); CALCIUM LEVEL 9.2 MG/DL (8.5-10.1); CARBON DIOXIDE LEVEL 29 MMOL/L (20-31); CHLORIDE LEVEL 105 MMOL/L (98-107); CREATININE FOR GFR 0.68 MG/DL (0.55-1.30); GLOMERULAR FILTRATION RATE > 90.0 (>51); POTASSIUM SERUM 3.8 MMOL/L (3.5-5.1); SODIUM LEVEL 142 MMOL/L (136-145)
[2024-12-26] MEDS ORDERED: ISOVUE-370 76% 100 ML VIAL As Ordered ONE (12:40)
[2024-12-26 13:30] VITALS: TEMP 97.7
[2024-12-26] MEDS ORDERED: MIRA3350 PO (14:27)
[2024-12-26] MEDS ORDERED: META28.32 PO (14:27)
[2024-12-26 14:35] VITALS: BP 131/76; O2SAT 98
== END 2024-12-26 14:43 | disposition home or self-care (01) ==
LOC: M ED 09:48
DX: K59.00 Constipation, unspecified (principal); K76.89 Other specified diseases of liver; Z79.899 Other long term (current) drug therapy
CPT/HCPCS: 36415; 74177; 80048; 80076; 81001; 82150; 83605; 83690; 85025; 85610; 85730; 87086; 93041; 99285; Q9967